=== PATIENT | male | born 1990 | race African-American/Black ===

== ENCOUNTER 2019-06-21 13:37 | Emergency (ER) | payer MEDICAID ==
[~2019-06-21] VITALS: Ht 180.3 cm; Wt 126.0 kg
[2019-06-21 16:05] LABS: BASOPHILS % 0.8 % (0.0-2.0); EOSINOPHILS % 2.4 % (0.0-5.0); HEMATOCRIT. 43.9 % (42.0-52.0); HEMOGLOBIN. 14.9 g/dL (14.0-18.0); MEAN CORPUSCULAR HEMOGLOBIN 29.9 pg (28.0-32.0); MEAN PLATELET VOLUME 8.1 fl (7.4-10.4); MONOCYTES % 7.5 % (2.0-8.0); NEUTROPHILS % 53.3 % (40.0-76.0); PLATELET 251 x1000/uL (130-400); RED BLOOD CELL COUNT 4.99 mill/uL (4.7-6.1); RED CELL DISTRIBUTION WIDTH 13.6 % (11.6-14.6)
[2019-06-21 16:12] LABS: CHLORIDE 106 mEq/L (98-107)
[2019-06-21 17:03] VITALS: BP 137/94
== END 2019-06-21 17:05 | disposition home or self-care (01) ==
LOC: ER 13:37
DX: R07.89 Other chest pain (principal); F17.210 Nicotine dependence, cigarettes, uncomplicated; Z71.6 Tobacco abuse counseling
CPT/HCPCS: 36415; 71045; 83880; 84443; 84484; 85379; 93005; 99284; 99406

== ENCOUNTER 2024-05-13 02:45 | Emergency (ER) | payer OTHER, MEDICAID ==
[~2024-05-13] VITALS: Ht 195.6 cm; Wt 127.0 kg
[2024-05-13 02:52] VITALS: BP 182/105; PULSE 57; RESP 16; TEMP 98.8; O2SAT 99
[2024-05-13] MEDS ORDERED: AMOXICILLIN/POTASSIUM CLAVULANATE 875/125MG TAB PO ONE (03:00)
[2024-05-13] MEDS ORDERED: ACETAMINOPHEN 325MG TABLET PO ONE (03:00)
[2024-05-13] MEDS ORDERED: KETOROLAC 30MG/ML VIAL IM ONE (03:00)
[2024-05-13] MEDS ORDERED: AMOX1TAB16 MT (03:10)
[2024-05-13] MEDS ORDERED: NAPR-1074 MT (03:10)
== END 2024-05-13 04:48 | disposition home or self-care (01) ==
LOC: ER 02:45
DX: K04.7 Periapical abscess without sinus (principal); I10 Essential (primary) hypertension; Z00.00 Encounter for general adult medical examination without abnormal findings
CPT/HCPCS: 99283